=== PATIENT | male | born 1980 | race Caucasian/White ===

== ENCOUNTER 2018-03-20 09:52 | Emergency (ER) | payer OTHER ==
[~2018-03-20] VITALS: Ht 185.4 cm; Wt 100.0 kg
[~2018-03-20 09:52] MED LIST: BACTRIM DS 8001 TAB PO; CEPHALEXIN500 M1 PO; NEURONTIN300 M1 PO; NO HOME MEDICATIONS; NORCO 325 MG-51 TA1 PO; SEROQUEL 200MG200 MG PO; SEROQUEL400 MG PO
[2018-03-20 11:31] VITALS: BP 109/63
== END 2018-03-20 11:20 | disposition home or self-care (01) ==
LOC: ED 09:52
DX: S06.0X0A Concussion without loss of consciousness, initial encounter (principal); S00.01XA Abrasion of scalp, initial encounter; S00.93XA Contusion of unspecified part of head, initial encounter; W22.8XXA Striking against or struck by other objects, initial encounter; Z23 Encounter for immunization
CPT/HCPCS: 90715